=== PATIENT | female | born 1955 | race Caucasian/White ===

== ENCOUNTER 2024-04-13 13:23 | Inpatient (IN) | payer MEDICARE ==
[2024-04-13] MEDS ORDERED: Ipratropium/Albuterol 3 ML NEB NEB PRN (15:55)
[2024-04-13 16:23] VITALS: BMI 26.7
[2024-04-13] MEDS: Azithromycin 250 MG TAB PO SCH (16:58)
[2024-04-13] MEDS: Nicotine 21 MG PATCH TD SCH (16:58)
[2024-04-13] MEDS: cefTRIAXone\\ROCEPHIN 2 GM in Sodium Chloride 0.9% 100 ML IVPB SCH (16:58)
[2024-04-13] MEDS ORDERED: Sodium Chloride 0.65% Nasal 44 ML BOT EA NARE PRN (17:25)
[2024-04-13] MEDS ORDERED: methylPREDNISolone Sod Succ 40 MG VIAL IVP SCH (18:00)
[2024-04-13] MEDS ORDERED: Electrolyte Replacement Protocol 1 EACH FS PRN (18:11)
[2024-04-13] MEDS: Ipratropium/Albuterol 3 ML NEB NEB SCH (19:05)
[2024-04-13] MEDS: Mometasone 100 MCG/Formoterol 5 MCG 120 PUFF INHALER INH SCH (19:06)
[2024-04-13] MEDS: Magnesium 2 GM/50 ML(in water) 2 GM in Premix 1 BAG IVPB SCH (20:09)
[2024-04-13] MEDS: Sodium Chloride 0.9% 1,000 ML IV SCH (20:09)
[2024-04-13] MEDS: Acetaminophen 500 MG TAB PO SCH (20:09)
[2024-04-13] MEDS: Ketorolac Tromethamine 30 MG (1 mL) VIAL IVP SCH (23:11)
[2024-04-13] MEDS: guaiFENesin ER 600 MG TAB PO SCH (23:11)
[2024-04-14] MEDS: Metoclopramide HCl 10 MG (2 mL) VIAL IVP SCH (05:00)
[2024-04-14] MEDS: Acetaminophen 325 MG TAB PO PRN (05:00)
[2024-04-14 05:52] LABS: Hematocrit 47.1 % (36.0-47.0); Hemoglobin 14.5 g/dL (12.0-16.0); Mean Corpuscular HGB CONC 30.8 g/dL (32.0-36.0); Mean Corpuscular Hemoglobin 26.4 pg (27.0-31.0); Mean Corpuscular Volume 85.8 fL (78.0-98.0); Platelet Count 283 10x3/uL (130-400); RBC Distribution Width 14.6 % (11.5-14.5); Red Blood Cell (RBC) Count 5.49 mill/uL (4.20-5.40)
[2024-04-14 06:33] LABS: Band 3 % (5-11); Lymphocytes 9 % (21-51); Monocytes 3 % (0-10); Neutrophil 80 % (42-75); Platelet Adequacy Comment Platelets Normal; RBC Morphology Within Normal Limits; Reactive Lymphocytes 3 % (0-10); Smudge Cells 16.2 %
[2024-04-14 06:39] LABS: ALT (SGPT) 11 U/L (8-55); AST (SGOT) 15 U/L (5-34); Albumin 3.2 g/dL (3.4-4.8); Alkaline Phosphatase 61 U/L (40-110); Anion Gap 11 mmol/L (10-20); BUN (Urea Nitrogen) 7 mg/dL (9.8-20.1); Bilirubin, Total 0.2 mg/dL (0.2-1.2); Calc. Creatinine Clearance 133 mL/min (70-130); Calcium 8.4 mg/dL (7.8-10.44); Carbon Dioxide 30 mmol/L (23-31); Chloride 96 mmol/L (98-107); Estimated GFR 103; Globulin 2.8 g/dL (2.4-3.5); Glucose 121 mg/dL (80-115); Magnesium 2.4 mg/dL (1.6-2.6); Potassium 4.6 mmol/L (3.5-5.1); Sodium 132 mmol/L (136-145)
[2024-04-14] MEDS: predniSONE 20 MG TAB PO SCH (09:28)
[2024-04-14] MEDS: Enoxaparin 40 MG (0.4 mL) SYRINGE SC SCH (09:29)
[2024-04-14] MEDS: guaiFENesin ER 600 MG TAB PO SCH (09:29)
[2024-04-14] MEDS: Fluticasone Propionate Nasal Spray 16 gm Bottle NASAL SCH (09:31)
[2024-04-14] MEDS: Cefdinir 300 MG CAP PO SCH (16:07)
[2024-04-14] MEDS: Calcium Carbonate 500 MG ChewTAB PO PRN (20:13)
[2024-04-15] MEDS: hydrOXYzine 25 MG TAB PO SCH (01:19)
[2024-04-16 08:35] LABS: #Basophils Less than 0.03 10x3/uL (0.0-0.2); #Eosinophils Less than 0.03 10x3/uL (0.0-0.7); %Basophils 0.1 % (0.0-1.0); %Lymphocytes 17.2 % (21.0-51.0); %Monocytes 10.9 % (0.0-10.0); %Neutrophils 71.5 % (42.0-75.0); Hematocrit 49.3 % (36.0-47.0); Hemoglobin 15.8 g/dL (12.0-16.0); Mean Corpuscular Hemoglobin 26.5 pg (27.0-31.0); Mean Corpuscular Volume 82.6 fL (78.0-98.0); Mean Platelet Volume 8.5 fL (7.4-10.4); Platelet Count 352 10x3/uL (130-400); RBC Distribution Width 14.1 % (11.5-14.5); Red Blood Cell (RBC) Count 5.97 mill/uL (4.20-5.40)
[2024-04-16 08:51] LABS: ALT (SGPT) 15 U/L (8-55); AST (SGOT) 27 U/L (5-34); Albumin 3.5 g/dL (3.4-4.8); Alkaline Phosphatase 65 U/L (40-110); Anion Gap 15 mmol/L (10-20); BUN (Urea Nitrogen) 9 mg/dL (9.8-20.1); Bilirubin, Total 0.5 mg/dL (0.2-1.2); Calc. Creatinine Clearance 117 mL/min (70-130); Calcium 8.5 mg/dL (7.8-10.44); Carbon Dioxide 31 mmol/L (23-31); Chloride 90 mmol/L (98-107); Estimated GFR 100; Globulin 3.3 g/dL (2.4-3.5); Glucose 108 mg/dL (80-115); Potassium 4.6 mmol/L (3.5-5.1); Protein, Total 6.8 g/dL (5.8-8.1); Sodium 131 mmol/L (136-145)
[2024-04-16] MEDS: Ibuprofen 600 MG TAB PO PRN (08:58)
[2024-04-17 16:19] VITALS: BP 107/70; TEMP 98.4
[2024-04-17] MEDS ORDERED: Ipratropium/Albuterol 3 ML NEB NEB SCH (19:00)
== END 2024-04-17 17:59 | disposition home or self-care (01) | DRG 177 ==
LOC: IMCU/EMU 14:43 → OBS 22:21
PROVIDERS: ADMIT Internal Medicine; ATTEND Internal Medicine
DX: U07.1 COVID-19 (principal); J96.21 Acute and chronic respiratory failure with hypoxia; E87.20 Acidosis, unspecified; J44.1 Chronic obstructive pulmonary disease with (acute) exacerbation; E87.1 Hypo-osmolality and hyponatremia; M48.54XA Collapsed vertebra, not elsewhere classified, thoracic region, initial encounter for fracture; F17.210 Nicotine dependence, cigarettes, uncomplicated; F41.9 Anxiety disorder, unspecified; E83.42 Hypomagnesemia; Z91.048 Other nonmedicinal substance allergy status; Z79.51 Long term (current) use of inhaled steroids; Z79.899 Other long term (current) drug therapy; Z79.52 Long term (current) use of systemic steroids; Z79.2 Long term (current) use of antibiotics; Z79.1 Long term (current) use of non-steroidal anti-inflammatories (NSAID)
CPT/HCPCS: 36415; 71045; 71275; 80053; 81001; 82805; 83605; 83735; 83880; 84145; 84484; 85025; 87040; 87428; 93005; 93010; 94640; 94660; 96374; 96375; J0692; J0696; J1650; J1885; J2765; J2919; J3475; J7030; J7512; J7620